=== PATIENT | male | born 1955 | race Asian ===

== ENCOUNTER 2017-09-23 21:28 | Emergency (ER) | payer SELFPAY ==
[2017-09-23 22:53] LABS: Basophils % (Auto) 0.4 % (0.0-1.8); Hematocrit 47.7 % (35.5-45.6); Hemoglobin 15.6 gm/dl (11.8-15.2); Mean Corpuscular HGB Conc 33 % (32-34); Mean Corpuscular Hemoglobin 31 pg (28-32); Mean Corpuscular Volume 94 fl (84-94); Platelet Count 209 K/mm3 (140-440); Red Blood Count 5.05 M/mm3 (3.65-5.03)
--- NOTE | 2017-09-23 23:14 | Cat Scan Report ---
FINAL REPORT PROCEDURE: CT HEAD/BRAIN WO CON TECHNIQUE: Computerized tomography of the head was performed without contrast material. HISTORY: head injury COMPARISON: No prior studies are available for comparison. FINDINGS: Skull and scalp: Mild degree left supra orbital soft tissue swelling is noted.. Paranasal sinuses: Normal. Ventricles and subarachnoid spaces: A 2 millimeter extra-axial calcification is noted in the anterior left frontal region most likely representing a small calcified meningioma.. Cerebrum: Moderate degree bilateral cerebral nonspecific white matter hypodensity is noted.. Cerebellum and brainstem: No evidence of hemorrhage, acute infarction or mass. Vasculature: Atherosclerotic calcification is noted involving bilateral internal carotid and vertebral arteries.. Comments: None. IMPRESSION: No acute intracranial abnormality. Nonspecific cerebral white matter hypodensity most likely represents chronic microangiopathy. Mild degree left supra orbital scalp swelling.
[2017-09-23 23:17] LABS: Albumin 3.7 g/dL (3.9-5); Albumin/Globulin Ratio 1.1 %; Bilirubin,Total 0.9 mg/dL (0.1-1.2); Chloride 99.8 mmol/L (98-107); Potassium 3.3 mmol/L (3.6-5.0); Total Protein 7.1 g/dL (6.3-8.2)
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
--- NOTE | 2017-09-23 23:42 | XRay Report ---
FINAL REPORT PROCEDURE: XR HAND 1V LT TECHNIQUE: LEFT hand radiographs, AP view. CPT 22202-CI HISTORY: hand pain with movemrnt COMPARISON: No prior studies are available for comparison. FINDINGS: Fracture (s) and/or Dislocation(s): None . Alignment: Normal . Joint space(s): Mild narrowing of radiocarpal and 1st proximal interphalangeal joints is noted. Soft tissues: Normal . Bone mineralization: Normal . Foreign bodies: None . IMPRESSION: No acute fracture. Osteoarthritis.
--- NOTE | 2017-09-23 23:44 | XRay Report ---
FINAL REPORT PROCEDURE: XR HAND 1V RT TECHNIQUE: RIGHT hand radiographs, AP view. CPT 86657-BF HISTORY: hand pain with movement COMPARISON: No prior studies are available for comparison. FINDINGS: Fracture (s) and/or Dislocation(s): None . Alignment: Normal . Joint space(s): There is narrowing of radiocarpal and interphalangeal joints.. Soft tissues: Normal . Bone mineralization: Normal . Foreign bodies: None . IMPRESSION: No acute fracture. Osteoarthritis. .
--- NOTE | 2017-09-23 23:46 | XRay Report ---
FINAL REPORT PROCEDURE: XR HUMERUS 2+V LT TECHNIQUE: LEFT humerus radiographs, AP and lateral views. HISTORY: left upper arm pain COMPARISON: No prior studies are available for comparison. FINDINGS: Fracture (s) and/or Dislocation(s): None . Joint space(s): Normal. Soft tissues: Normal. Bone mineralization: Normal. Foreign bodies: None. IMPRESSION: Normal Examination.
--- NOTE | 2017-09-23 23:50 | XRay Report ---
FINAL REPORT PROCEDURE: XR SHOULDER 2+V LT TECHNIQUE: Left shoulder radiographs including AP views in internal and external rotation and abduction. CPT 65167 HISTORY: shoulder pain COMPARISON: No prior studies are available for comparison. FINDINGS: Fracture (s) and/or Dislocation(s): None . Joint space(s): There is narrowing of left glenohumeral and acromioclavicular joint spaces. There is also decreased acromiohumeral interval.. Soft tissues: Normal . Bone mineralization: Normal . Foreign bodies: None . IMPRESSION: No acute fracture. Osteoarthritis left glenohumeral and acromioclavicular joints. Decreased glenohumeral interval most likely represents chronic rotator cuff tendon tear.
--- NOTE | 2017-09-24 00:09 | Cat Scan Report ---
FINAL REPORT EXAM: CT FACIAL BONES WO CON HISTORY: head injury TECHNIQUE: Routine axial imaging was obtained of the facial bones without IV contrast with images reviewed on soft tissue and bone window settings. Coronal and parasagittal reconstructions were reviewed. FINDINGS: There is left-sided pre frontal scalp swelling. There is no evidence of fracture of the frontal bone or left orbit. The orbital rims and floors appear intact. The sinuses reveal mild mucosal thickening in both maxillary sinuses. The nasal bones and zygomatic arches appear intact. The mandible appears intact also. IMPRESSION: Left-sided prefrontal scalp swelling. No evidence of facial bone fracture. Mucosal thickening in both maxillary sinuses.
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
[2017-09-24] MEDS ORDERED: XYLOCAINE 1% MPF 5 mL INFILTRATI ONE (01:36)
[2017-09-24] MEDS ORDERED: HYDROGEN PEROXIDE TP ONE (01:37)
--- NOTE | 2017-09-24 02:16 | XRay Report ---
FINAL REPORT EXAM: XR WRIST 1V LT HISTORY: pain left wrist TECHNIQUE: A single AP view of the wrist was obtained. FINDINGS: There is no evidence of fracture or soft tissue injury. The navicular bone appears intact. IMPRESSION: No gross abnormalities. Limited study.
--- NOTE | 2017-09-24 02:16 | XRay Report ---
FINAL REPORT EXAM: XR CHEST 1V AP HISTORY: upper left chest pain TECHNIQUE: An AP view of the chest was submitted. FINDINGS: The heart is mildly enlarged. The thoracic aorta is mildly tortuous. The lungs are clear. Pleural fluid is not seen. The bones and soft tissues do not show any acute changes. IMPRESSION: Mild cardiomegaly. No acute process in the chest
--- NOTE | 2017-09-24 02:17 | XRay Report ---
FINAL REPORT EXAM: XR WRIST 1V RT HISTORY: pain right wrist TECHNIQUE: A single AP view of the right wrist was submitted. FINDINGS: There is no evidence of acute fracture or soft tissue injury. The navicular bone appears intact. There deformity of the distal end of the 1st metacarpal suggesting a well-healed fracture. IMPRESSION: No evidence of acute injury.
--- NOTE | 2017-09-24 02:19 | XRay Report ---
FINAL REPORT EXAM: XR KNEE 1-2V RT HISTORY: pain right knee TECHNIQUE: Three views of the right knee were submitted. FINDINGS: There is severe narrowing of the lateral compartment with moderate narrowing of the medial and patellofemoral compartments. There is no evidence of fracture. Joint fluid is not seen. The soft tissues well maintained IMPRESSION: Tricompartmental arthritic changes. No acute injury.
[2017-09-24] MEDS ORDERED: TYLENOL ONE (02:21)
[2017-09-24] MEDS ORDERED: TYLENOL PO ONE (02:24)
--- NOTE | 2017-09-24 02:38 | Cat Scan Report ---
FINAL REPORT EXAM: CT LUMBAR SPINE WO CON HISTORY: pain TECHNIQUE: Routine axial imaging was obtained of the lumbar spine with sagittal and coronal reconstructions. FINDINGS: There is severe disc degeneration at the L5-S1 level. There is moderate size left parasagittal partially calcified disc herniation impinging on the thecal sac at this level. There is bilateral mild facet arthropathy changes noted also. At the L4-5 level the disc height is preserved. There is severe bilateral hypertrophic facet arthropathy changes. The canal size is borderline at this level with central bulging of the disc annulus. At the L3-4 level the disc height is preserved. The there is mild canal stenosis. There is bilateral moderate facet arthropathy changes At the L2-3 level the disc height is preserved. The canal size is borderline. There is bilateral [id number] facet arthropathy changes. At the L1-L2 level the disc height is preserved. The canal size is normal. There is no evidence of fracture. The SI joints appear well maintained IMPRESSION: Extensive multilevel arthritic changes as described. Mild canal stenosis at the L3-4 level with borderline changes at the L4-5 and L2-3 levels. Moderate sized left parasagittal disc herniation at the L5-S1 level impinging on the thecal sac. No evidence of acute fracture.
--- NOTE | 2017-09-24 02:52 | Cat Scan Report ---
FINAL REPORT EXAM: CT CHEST WO CON HISTORY: TRUMA TO CHEST AND BACK TECHNIQUE: Routine axial imaging was obtained of the thorax without IV contrast with sagittal and coronal reconstructions. FINDINGS: The lungs reveal atelectatic changes in both lower lobes without focal infiltrates or pleural effusions. There is no evidence of pneumothorax. The heart is mildly enlarged. Pericardial fluid is not seen. There is no evidence of lymphadenopathy. The thoracic aorta is mildly ectatic. There is no evidence of acute rib fracture or acute spinal fracture. There are prominent anterior osteophytes in the mid dorsal spine. In the upper abdomen the adrenal glands appear normal. There are benign cortical cysts in both kidneys measuring up to 2.9 cm in diameter in the right kidney. At the thoracic inlet the thyroid gland appears normal. IMPRESSION: Atelectatic changes in both lower lobes. No evidence of pneumothorax or pleural effusion. Arthritic changes in the thoracic spine. No evidence of acute rib fracture or spinal fracture. Benign cortical cysts in both kidneys.
[2017-09-24] MEDS ORDERED: NACL 0.9% 500 ML IR ONE (04:28)
[2017-09-24] MEDS ORDERED: ASTRAMORPH PF IV ONE (04:30)
[2017-09-24] MEDS ORDERED: MORPHINE IV ONE (04:30)
[2017-09-24] MEDS ORDERED: BOOSTRIX IM ONE (04:39)
[2017-09-24] MEDS ORDERED: NACL 0.9% IR ONE (05:11)
[2017-09-24] MEDS ORDERED: XYLOCAINE 1% 20 mL ONE (05:42)
[2017-09-24] MEDS ORDERED: XYLOCAINE 1% 20 mL INFILTRATI ONE (05:47)
[2017-09-24] MEDS ORDERED: TENIVAC IM ONE (06:31)
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
[2017-09-24 06:56] VITALS: BP 143/93
== END 2017-09-24 07:21 | disposition home or self-care (01) ==
LOC: ED 21:28
DX: S01.81XA Laceration without foreign body of other part of head, initial encounter (principal); S20.229A Contusion of unspecified back wall of thorax, initial encounter; S60.222A Contusion of left hand, initial encounter; R79.89 Other specified abnormal findings of blood chemistry; I10 Essential (primary) hypertension; F17.210 Nicotine dependence, cigarettes, uncomplicated; F14.10 Cocaine abuse, uncomplicated; F12.10 Cannabis abuse, uncomplicated; Y04.8XXA Assault by other bodily force, initial encounter; Y93.89 Activity, other specified; Y92.89 Other specified places as the place of occurrence of the external cause; Y99.8 Other external cause status
CPT/HCPCS: 12011; 36415; 70450; 70486; 71010; 71250; 72125; 72131; 73030; 73060; 73100; 73120; 73560; 80053; 80061; 84484; 85025; 90471; 90715; 93005; 93010; 99285; G0480; 80320